=== PATIENT | male | born 1970 | race African-American/Black ===

== ENCOUNTER 2017-01-13 17:03 | Inpatient (IN) | payer OTHER ==
[~2017-01-13] VITALS: Ht 175.3 cm; Wt 157.9 kg
[2017-01-13] VITALS (11 sets, daily range): BP systolic 107–203; BP diastolic 46–113; TEMP 98.2–98.8
[2017-01-13 17:54] LABS: PLATELET COUNT 195 K/uL (142-355)
[2017-01-13 17:58] LABS: POTASSIUM 3.8 mmol/L (3.6-5.2); SODIUM 139 mmol/L (136-145)
[2017-01-13 18:22] LABS: PARTIAL THROMBOPLASTIN TIME 24.5 SECONDS (24.5-33.6)
[2017-01-13] MEDS ORDERED: CETI10TA PO (20:15)
[2017-01-13] MEDS ORDERED: MULTI VITAMIN MENS PO (20:20)
--- NOTE | 2017-01-13 21:05 | NUR ---
PATIENT REPORT CALLED IN FROM ER STAFF.
--- NOTE | 2017-01-13 21:15 | NUR ---
PATIENT ARRIVED TO ICU BY WHEELCHAIR AND ER STAFF. PATIENT WAS ASSISTED ONTO UNIT BED AND MONITORING EQUIPMENT APPLIED. PATIENT WAS ALERT AND ORIENTED X4. NO COMPLAINTS NOTED AT THIS TIME. NO ACUTE DISTRESS NOTED.PATIENT HAS 20GA IV LEFT AC WITH CARDIZEM @ 15 MG/HR. PATIENT ORIENTED TO UNIT, BED IN LOW POSITION, TWO SIDERAILS UP.
[2017-01-14] VITALS (19 sets, daily range): BP systolic 91–144; BP diastolic 45–95; TEMP 97.7–98.3
[2017-01-14 06:14] LABS: POTASSIUM 3.9 mmol/L (3.6-5.2); SODIUM 138 mmol/L (136-145)
[2017-01-14 07:27] LABS: PLATELET COUNT 172 K/uL (142-355)
--- NOTE | 2017-01-14 08:00 | NUR ---
DECREASED CARDIZEM 10MG/HR, HR 80-100
--- NOTE | 2017-01-14 09:50 | NUR ---
PT AMBULATED TO RESTROOM. ON RETURN TO BED, HR 116-108, PT STATES THAT ON A SCALE OF 1-10 HIS SOB IS A 2.
--- NOTE | 2017-01-14 11:50 | NUR ---
DR JOHNSON AT BS. AT BS
--- NOTE | 2017-01-14 14:00 | NUR ---
DECREASED CARDIZEM GTT 7MG/HR
--- NOTE | 2017-01-14 14:13 | NUR ---
PTS AT BS
--- NOTE | 2017-01-14 19:54 | NUR ---
CARDIZEM GTT @7MG/HR. HR 80-110. PT HAS NO C/O AT THIS TIME.
--- NOTE | 2017-01-14 20:00 | NUR ---
PM ASSESSMENT COMPLETED. CARDIZEM DRIP AT 7MG/HR. IV SITE WITHOUT REDNESS OR SWELLING INFUSING WITHOUT DIFFICULTY. NO COMPLAINTS AT THIS TIME.
--- NOTE | 2017-01-14 20:10 | NUR ---
AMBULATED TO BATHROOM. VOIDED 350CC'S CONCENTRATED URINE.
--- NOTE | 2017-01-14 21:25 | NUR ---
CARDIZEM DECREASED TO 5MG/HR.
--- NOTE | 2017-01-14 22:06 | NUR ---
PT LYING ON RIGHT SIDE WITH EYES CLOSED. SNORING NOTED.
--- NOTE | 2017-01-14 23:28 | NUR ---
PT AMBULATING TO BATHROOM.
--- NOTE | 2017-01-14 23:39 | NUR ---
CARDIZEM 30MG PO ORDERED. PT VOIDED 250CC'S.
[2017-01-15] VITALS (20 sets, daily range): BP systolic 116–167; BP diastolic 71–113; TEMP 98.1–98.4
--- NOTE | 2017-01-15 01:01 | NUR ---
PT C/O HEADACHE. MEDICATED WITH TYLENOL 650MG PO FOR PAIN SCALE OF 6. PT REQUESTS TO STAND BY BED FOR COMFORT DUE TO BED.
--- NOTE | 2017-01-15 01:17 | NUR ---
pt sitting at side of bed. restoril 15mg given po for rest.
--- NOTE | 2017-01-15 02:41 | NUR ---
PT RESTING WITH EYES CLOSED PAST RESTORIL
[2017-01-15 06:21] LABS: PLATELET COUNT 213 K/uL (142-355)
[2017-01-15 06:30] LABS: POTASSIUM 3.9 mmol/L (3.6-5.2); SODIUM 135 mmol/L (136-145)
--- NOTE | 2017-01-15 07:30 | NUR ---
AM ASSESSMENT DONE. NAD NOTED AT THIS TIME. PT AMB TO BR. VOIDED 250ML OF URINE.
--- NOTE | 2017-01-15 08:45 | NUR ---
PT ATE ALL OF BREAKFAST. NAD NOTED AT THIS TIME.
--- NOTE | 2017-01-15 09:18 | NUR ---
HR 90-110'S. INCREASED CARDIAZEM TO 5MG/HR. WILL CONTINUE TO MONITOR.
--- NOTE | 2017-01-15 09:31 | NUR ---
PT IS VERY ANXIOUS AND TEARFUL. TALKED WITH PT TO HELP SOOTHE PT AND RELAX PT. PT UP TO BR.
--- NOTE | 2017-01-15 10:36 | NUR ---
FAMILY AT BEDSIDE.
--- NOTE | 2017-01-15 10:56 | NUR ---
HR 100-120'S. NAD NOTED AT THIS TIME. AT BEDSIDE. WILL CONTINUE TO MONITOR.
--- NOTE | 2017-01-15 11:59 | NUR ---
DR. JOHNSON HERE TO SEE PT.
--- NOTE | 2017-01-15 12:15 | NUR ---
LOPRESSOR 5MG IV GIVEN OVER 2 MIN. WILL CONTINUE TO MONITOR.
--- NOTE | 2017-01-15 12:30 | NUR ---
PT ATE LUNCH. NAD NOTED. HR 80-100'S, BP 144/98. WILL CONTINUE TO MONITOR.
--- NOTE | 2017-01-15 13:37 | NUR ---
HR 80-100'S, BP 133/90. DR. JOHNSON NOTIFIED. RECEIVED ORDER TO D/C ADIN BURTON WILL CONTINUE TO MONITOR.
--- NOTE | 2017-01-15 14:10 | NUR ---
IV SITE WRAPPED. PT AMB WITH AND TOY ZELAYA PCT TO ROOM 1121 FOR A SHOWER.
--- NOTE | 2017-01-15 14:40 | NUR ---
PT BACK TO ICU FROM SHOWER. NO C/O AT THIS TIME. PLACED MONITORS BACK ON PT. HR 80-100'S. WILL CONTINUE TO MONITOR.
--- NOTE | 2017-01-15 15:56 | NUR ---
AT BEDSIDE. HR 80-90'S. WILL CONTINUE TO MONITOR.
--- NOTE | 2017-01-15 17:43 | NUR ---
PT ATE SUPPER. PT WATCHING TV. NAD NOTED AT THIS TIME.
[2017-01-16] VITALS (17 sets, daily range): BP systolic 97–154; BP diastolic 59–100; TEMP 97.5–98.1
[2017-01-16 06:29] LABS: PLATELET COUNT 211 K/uL (142-355)
[2017-01-16 06:36] LABS: POTASSIUM 3.9 mmol/L (3.6-5.2); SODIUM 138 mmol/L (136-145)
--- NOTE | 2017-01-16 07:45 | NUR ---
AM ASSESSMENT DONE. PT UP TO BR TO USE URINAL. NO C/O AT THIS TIME. PT SITTING ON SIDE OF BED WATCHING TV. WILL CONTINUE TO MONITOR.
--- NOTE | 2017-01-16 08:56 | NUR ---
PT EATING BREAKFAST.
--- NOTE | 2017-01-16 10:00 | NUR ---
AT BEDSIDE. NAD NOTED AT THIS TIME.
--- NOTE | 2017-01-16 12:01 | NUR ---
DR. JOHNSON HERE TO SEE PT.
--- NOTE | 2017-01-16 12:59 | NUR ---
PT UP TO BR TO VOID. NAD NOTED AT THIS TIME.
--- NOTE | 2017-01-16 14:00 | NUR ---
HR 80-100'S. NAD NOTED AT THIS TIME.
--- NOTE | 2017-01-16 15:16 | NUR ---
HR 80-100'S. NAD NOTED AT THIS TIME. WILL CONTINUE TO MONITOR.
--- NOTE | 2017-01-16 16:15 | NUR ---
PT VERY ANXIOUS. HR 80-100'S. PT AND VOICED CONCERN THAT HR NOT SLOWING DOWN. DR. JOHNSON NOTIFIED. NEW ORDERS RECEIVED.
--- NOTE | 2017-01-16 16:20 | NUR ---
PT AMB WITH AND ANAHY HOLLOWAY PCT TO EMPTY MED SURG ROOM TO TAKE A SHOWER.
[2017-01-17] VITALS (12 sets, daily range): BP systolic 93–130; BP diastolic 66–99; TEMP 98–98.2
--- NOTE | 2017-01-17 00:44 | NUR ---
01/16/2017 ALLYSON JOHNSON CALLED TO CHECK ON PT.
[2017-01-17 06:29] LABS: POTASSIUM 4.1 mmol/L (3.6-5.2); SODIUM 137 mmol/L (136-145)
[2017-01-17 06:35] LABS: PLATELET COUNT 216 K/uL (142-355)
--- NOTE | 2017-01-17 14:30 | NUR ---
IV CATH REMOVED.
--- NOTE | 2017-01-17 14:50 | NUR ---
DISHCARGE INSTRUCTIONS GIVEN.
--- NOTE | 2017-01-17 15:05 | NUR ---
PT ESCORTED OUT OF BUILDING, AT SIDE.
== END 2017-01-17 15:09 | disposition home or self-care (01) | DRG 310 ==
LOC: ED 17:03 → ICU 19:52
PROVIDERS: Internal Medicine; ADMIT Specialist
DX: I48.91 Unspecified atrial fibrillation (principal); I10 Essential (primary) hypertension
CPT/HCPCS: 36415; 80053; 80307; 82550; 83735; 84100; 84443; 84484; 85027; 85610; 85730; 93005; 93306; 96365; 96372; 96376; 99285; G0479; J1650; J1940; J2060; J3490

== ENCOUNTER 2023-05-02 09:47 | Outpatient (CLI) | payer OTHER ==
[~2023-05-02 09:47] MED LIST: CETI10TA PO; MULTI VITAMIN MENS PO
== END 2023-05-02 18:59 | disposition home or self-care (01) ==
LOC: LABW 09:47
PROVIDERS: ATTEND Family Medicine
DX: E11.65 Type 2 diabetes mellitus with hyperglycemia (principal); E66.01 Morbid (severe) obesity due to excess calories; G47.33 Obstructive sleep apnea (adult) (pediatric); E78.1 Pure hyperglyceridemia
CPT/HCPCS: 36415; 84439; 84443; 84550